=== PATIENT | female | born 1980 | race Caucasian/White ===

== ENCOUNTER 2018-11-23 02:10 | Emergency (ER) | payer OTHER ==
[~2018-11-23] VITALS: Ht 172.7 cm; Wt 65.8 kg
[2018-11-23 02:14] VITALS: BP 123/75
[2018-11-23] MEDS ORDERED: ONDANSETRON 4 MG ODT PO ONE (02:20)
[2018-11-23 03:20] VITALS: BP 123/75
== END 2018-11-23 03:20 | disposition home or self-care (01) ==
LOC: MED 02:10
DX: R11.2 Nausea with vomiting, unspecified (principal); R20.0 Anesthesia of skin; F10.129 Alcohol abuse with intoxication, unspecified; E05.90 Thyrotoxicosis, unspecified without thyrotoxic crisis or storm
CPT/HCPCS: 99283; Q0162